=== PATIENT | female | born 1995 | race Caucasian/White ===

== ENCOUNTER 2018-03-11 21:31 | Emergency (ER) | payer SELFPAY ==
[~2018-03-11] VITALS: Ht 162.5 cm; Wt 59.0 kg
[2018-03-11 21:49] LABS: BILIRUBIN NEGATIVE (NEGATIVE); BLOOD TRACE-LYSED (NEGATIVE); CLARITY CLEAR (CLEAR); COLOR YELLOW (YELLOW); GLUCOSE NEGATIVE (NEGATIVE); KETONE NEGATIVE (NEGATIVE); LEUKO ESTERASE TRACE (NEGATIVE); NITRITE NEGATIVE (NEGATIVE); SPECIFIC GRAVITY 1.015 (1.005-1.030); UROBILINOGEN 0.2 E.U./dl (0.2-1.0)
[2018-03-11 21:56] LABS: BACTERIA 2+
[2018-03-11] MEDS ORDERED: ZOFRAN ODT4 MG SL (22:13)
[2018-03-11] MEDS ORDERED: MACROBID100 M1 PO (22:13)
[2018-03-11] MEDS ORDERED: Motrin,Rufen800 MG PO (22:13)
== END 2018-03-11 22:20 | disposition home or self-care (01) ==
LOC: ED 21:31
PROVIDERS: Student in an Organized Health Care Education/Training Program
DX: N39.0 Urinary tract infection, site not specified (principal); F17.200 Nicotine dependence, unspecified, uncomplicated; Z88.1 Allergy status to other antibiotic agents